=== PATIENT | male | born 1995 | race Caucasian/White ===

== ENCOUNTER → 2021-08-12 11:38 | Outpatient (CLI) | payer OTHER, SELFPAY ==
--- NOTE | 2021-08-12 11:43 | DI.RAD.S_ITS ---
PROCEDURE: XR FINGER RT MIN 2V INDICATIONS: Thumb injury TECHNIQUE: PA hand, 2 views of the thumb acquired. COMPARISON: None. FINDINGS: Bones: No fractures or dislocations. No suspicious bony lesions. Soft tissues: No suspicious soft tissue calcifications. No radiopaque foreign body. Soft tissue edema is seen in the thumb. IMPRESSION: No acute osseous abnormality. If clinical suspicion and/or symptoms persist, additional imaging with repeat plain films, or advanced imaging (e.g. CT, MRI) may be helpful for further assessment. Dictated by: Donald Lopez M.D. on 08/12/2021 at 12:07 Approved by: Donald Lopez M.D. on 08/12/2021 at 12:08
== END ==
PROVIDERS: Referring Provider Physician Assistant; Visit Provider Physician Assistant
DX: S69.91XA Unspecified injury of right wrist, hand and finger(s), initial encounter (principal); M79.644 Pain in right finger(s); X58.XXXA Exposure to other specified factors, initial encounter
CPT/HCPCS: 73140